=== PATIENT | female | born 1980 | race Caucasian/White ===

== ENCOUNTER 2021-04-28 08:18 | Outpatient (CLI) | payer BC, SELFPAY ==
--- NOTE | ~2021-04-28 | MM_ITS ---
EXAMINATION: MM screening griselda BI w gita HISTORY: Screening TECHNIQUE: Craniocaudal and mediolateral oblique 3-D tomosynthesis images were obtained and synthetic 2-D images were generated. CAD analysis was submitted and interpreted. COMPARISON: 08/17/2011 BREAST PARENCHYMAL COMPOSITION: The breasts are extremely dense, which lowers the sensitivity of mamm ography FINDINGS: There are benign right breast calcifications. There is a possible mass in the subareolar lo cation of the left breast seen on MLO view only. There are multiple tissue markers from previous herlinda gn biopsies. There is a possible mass centered in the upper outer quadrant of the right breast with a ssociated marginal tissue markers. IMPRESSION: 1. Possible bilateral breast masses. 2. Additional spot compression views of the left breast and bilateral complete ultrasound recommended . BI-RADS CATEGORY 0 - INCOMPLETE STUDY, NEED ADDITIONAL IMAGING EVALUATION. Reviewed, dictated and finalized at location [facility]. TER CIVIL IMPRESSION: 1. Possible bilateral breast masses. 2. Additional spot compression views of the left breast and bilateral complete ultrasound recommended. BI-RADS CATEGORY 0 - INCOMPLETE STUDY, NEED ADDITIONAL IMAGING EVALUATION.
== END 2021-04-28 08:19 | disposition home or self-care (01) ==
LOC: ANHIMG 08:20
PROVIDERS: PCP Family Medicine; Visit Provider Obstetrics & Gynecology
DX: Z12.31 Encounter for screening mammogram for malignant neoplasm of breast (principal); R92.8 Other abnormal and inconclusive findings on diagnostic imaging of breast
CPT/HCPCS: 77063; 77067

== ENCOUNTER 2021-05-14 12:22 | Outpatient (CLI) | payer BC, SELFPAY ==
--- NOTE | ~2021-05-14 | MM_ITS ---
EXAMINATION: MM diagnostic griselda LT w gita HISTORY: Left breast asymmetry on screening mammogram TECHNIQUE: Additional 3-D tomosynthesis images of the left breast were performed and synthetic 2-D im ages were generated. CAD analysis was submitted and interpreted. COMPARISON: 04/28/2021, 01/24/2011 FINDINGS: There is an 8 mm round, obscured, equal density mass in the anterior third of the breast at the 9:00 location 3 cm from the nipple. No associated architectural distortion or calcification are identified. IMPRESSION: 1. Indeterminate left breast mass. Left breast ultrasound is recommended. Of note, bilateral breast u ltrasound was recommended on screening mammogram. BI-RADS Category 0: Incomplete: Needs additional imaging evaluation. Reviewed, dictated and finalized at location A. RVISOR ADVICE IMPRESSION: 1. Indeterminate left breast mass. Left breast ultrasound is recommended. Of no te, bilateral breast ultrasound was recommended on screening mammogram. BI-RADS Category 0: Incomplete: Needs additional imaging evaluation.
== END 2021-05-14 12:23 | disposition home or self-care (01) ==
PROVIDERS: PCP Family Medicine; Visit Provider Family Medicine
DX: R92.8 Other abnormal and inconclusive findings on diagnostic imaging of breast (principal)
CPT/HCPCS: 77061; 77065; G0279

== ENCOUNTER 2021-09-03 12:06 | Outpatient (CLI) | payer BC, SELFPAY ==
--- NOTE | ~2021-09-03 | US_ITS ---
US breast BI complete DATE: 09/03/2021 13:08 INDICATION: Possible bilateral breast masses reported on April 28, 2021 screening mammogram TECHNIQUE: Bilateral complete breast ultrasound including all 4 quadrants and subareolar areas COMPARISON: 04/28/2021 bilateral screening mammogram 05/14/2021 Diagnostic left mammogram FINDINGS: No suspicious solid lesion or shadowing of either breast is noted. Right breast: 12:00 3 cm from nipple: 3 x 4 mm cyst 1:00 4 cm from nipple: 3 x 3.4 mm cyst 9:00 4 cm from nipple: 8 x 13 x 12.4 mm septated cyst 9:00 7 cm from nipple: 2 x 4 mm simple cyst 10:00 4 cm from nipple: Oval parallel circumscribed 9 x 10 x 14 mm area of probable fibroglandular st armida; no suspicious vascularity or shadowing. Left breast: 3:00 near nipple: Small cysts or ducts. 9:00 4 cm from nipple: 2.4 x 5 mm cyst IMPRESSION: BI-RADS Category 2: Benign findings Regulation: Routine annual mammographic screening can with ultrasound supplementation as clinically a ppropriate in these extremely dense breasts Reviewed, dictated and finalized at [facility]. Reviewed, dictated and finalized at location [facility]. IMPRESSION: BI-RADS Category 2: Benign findings Regulation: Routine annual mammographic screening can with ultrasound supplemen tation as clinically appropriate in these extremely dense breasts
== END 2021-09-03 12:07 | disposition home or self-care (01) ==
PROVIDERS: PCP Family Medicine; Visit Provider Obstetrics & Gynecology
DX: R92.8 Other abnormal and inconclusive findings on diagnostic imaging of breast (principal)
CPT/HCPCS: 76641